=== PATIENT | male | born 2000 | race Caucasian/White ===

== ENCOUNTER 2023-01-17 15:40 | Outpatient (CLI) | payer OTHER, MEDICAID, SELFPAY | END 2023-01-17 15:41 | disposition home or self-care (01) | PROVIDERS: Visit Provider Emergency Medicine | DX: Z00.00 Encounter for general adult medical examination without abnormal findings (principal); L70.8 Other acne; R20.2 Paresthesia of skin; R39.11 Hesitancy of micturition | CPT/HCPCS: 80053; 82607; 83516; 84443; 86140 ==